=== PATIENT | female | born 1975 | race Caucasian/White ===

== ENCOUNTER → 2019-05-15 | Outpatient (CLI) | payer OTHER, SELFPAY ==
[2019-03-05 15:14] VITALS: BMI 48.4
--- NOTE | 2019-05-15 09:51 | ECHOCS_ITS ---
Reason For Study: palpitations, PFO, MAGGIE Procedure This was a 2D Doppler, Color Flow transthoracic echocardiogram. The study was technically difficult. D/T body habitus and arrhythmia. Exam performed in department. Left Ventricle Normal LV size. The estimated ejection fraction is 70 %. Normal diastology for age. No regional wall motion abnormalities noted. Right Ventricle Normal RV size. Normal systolic function. Atria The left atrium is mildly enlarged. Normal right atrium. No doppler evidence for ASD. No PFO visualised. Mitral Valve There is no mitral valve stenosis. No mitral valve insufficiency. Tricuspid Valve There is no tricuspid stenosis. Trivial tricuspid valve insufficiency. Unable to estimate RV systolic pressure due to insufficient tricuspid regurgitant envelope. Aortic Valve not well visualized. There is no aortic stenosis. No aortic valve insufficiency. Pulmonic Valve There is no pulmonic valvular stenosis. No pulmonic valve insufficiency. Great Vessels Normal aortic root. Pericardium/Pleural No pericardial effusion. MMode/2D Measurements & Calculations LVIDd: 4.3 cm IVSd: 1.1 cm Ao root diam: 3.1 cm LVIDs: 3.0 cm LVPWd: 1.2 cm RVDd: 3.4 cm FS: 29.5 % LAV(MOD-bp): 63.4 ml LA A4 area: 21.0 cm2 LA dimension(2D): 4.5 cm LAV(MOD-bp) Indexed: 27.3 ml/m2 LAV(MOD-sp2): 58.3 ml LAV(MOD-sp4): 66.5 ml RA A4 area: 13.3 cm2 Time Measurements MV dec time: 0.18 sec Doppler Measurements & Calculations MV E max josh: 54.1 cm/sec Lat Peak E' Josh: 10.3 cm/sec Med Peak E' Josh: 10.8 cm/sec MV A max josh: 62.3 cm/sec E/E' lat: 5.3 E/E' med: 5.0 MV E/A: 0.87 Ao V2 max: 105.8 cm/sec LV V1 max: 93.3 cm/sec PA V2 max: 99.1 cm/sec Ao max P.5 mmHg LV V1 max P.5 mmHg Interpretation Summary The study was technically difficult. Contrast injection was performed. The estimated ejection fraction is 70 %. Normal diastology for age. No PFO visualised The study was technically difficult. Contrast injection was performed. Ordering Physician: Ayla Carreon Referring Physician: Mt Johnson Performed By: Torie Leon, KAMICS, RVT
== END | disposition home or self-care (01) ==
PROVIDERS: Family Provider Family Medicine; PCP Family Medicine; Referring Provider Specialist; Visit Provider Specialist
DX: R00.2 Palpitations (principal); G47.33 Obstructive sleep apnea (adult) (pediatric); I48.0 Paroxysmal atrial fibrillation; I10 Essential (primary) hypertension; Q21.1 Atrial septal defect
CPT/HCPCS: 93306; Q9957; A4216; C8929

== ENCOUNTER → 2019-05-20 | Outpatient (CLI) | payer OTHER, SELFPAY ==
[2019-03-05 15:14] VITALS: BMI 48.4
[2019-05-20 16:52] LABS: ALB/GLOB Ratio 0.9 RATIO (0.9-2.4); AST(SGOT) 22 U/L (15-37); Alanine Aminotransfer ALT/SGPT 41 U/L (13-56); Albumin, Serum 3.6 g/dL (3.2-5.0); Alkaline Phosphatase 76 U/L (45-117); Anion Gap 4 (5-15); BUN 17 mg/dL (7-18); BUN/Creat Ratio 17.7 RATIO (10-20); Calcium,Total 8.9 mg/dL (8.5-10.1); Chloride 106 mmol/L (98-107); Creatinine, Serum 0.96 mg/dL (0.55-1.02); EST Glomerular Filtration Rate 66 mL/min (>60); Est Glom Filt Rate - Afr Amer 80 mL/min (>60); Free T3 3.2 pg/mL (2.18-3.98); Glucose 90 mg/dL (74-106); Magnesium 2.1 mg/dL (1.6-2.6); Potassium 3.8 mmol/L (3.5-5.1); Protein, Total 7.6 g/dL (6.4-8.2); Sodium Level 137 mmol/L (136-145); T4 Total, Thyroxin 15.3 ug/dL (4.8-13.9); Thyroid Stim Hormone (TSH) 0.18 uIU/mL (0.358-3.74)
== END | disposition home or self-care (01) ==
LOC: LAB 15:14
PROVIDERS: PCP Family Medicine; Referring Provider Specialist; Visit Provider Specialist
DX: I10 Essential (primary) hypertension (principal); I47.2 Ventricular tachycardia; I48.0 Paroxysmal atrial fibrillation; R00.2 Palpitations; Z85.850 Personal history of malignant neoplasm of thyroid
CPT/HCPCS: 36415; 80053; 83735; 84436; 84443; 84481

== ENCOUNTER → 2021-12-30 | Outpatient (CLI) | payer OTHER, SELFPAY | END | disposition home or self-care (01) | LOC: SL 20:10 | PROVIDERS: PCP Family Medicine; Referring Provider Internal Medicine Critical Care Medicine; Visit Provider Internal Medicine Critical Care Medicine | DX: G47.33 Obstructive sleep apnea (adult) (pediatric) (principal) | CPT/HCPCS: 95811 ==

== ENCOUNTER → 2022-04-06 | Outpatient (CLI) | payer OTHER, SELFPAY ==
--- NOTE | 2022-04-06 13:45 | PFTCOMP ---
COMPLETE PULMONARY FUNCTION TEST INTERPRETATION Brief HPI: Patient is a 47-year-old female, currently under the care of myself, who presents to [facility] for complete pulmonary function tests secondary to diagnosis of dyspnea. Respiratory therapist reports good effort and reproducible results. Interpretation: Forced expiration spirometry shows no large airways obstructive ventilatory defect with an FEV1 of 85% predicted. There is no significant bronchodilator response by strict ATS criteria. Spirograms are of good quality and plateau normally. The respiratory flow volume loop shows a normal pattern. Lung volumes by body plethysmography show a normal total lung capacity at 5.11 L, 95% predicted. All other lung volumes are within normal limits. Diffusion capacity by carbon monoxide is normal at 78% predicted. The airway resistance is normal. No previous pulmonary function tests were available for review. Impression: These pulmonary function tests are grossly within normal limits. DLCO is at the lower limit of normal, so early pulmonary vascular disorder cannot be excluded.
== END | disposition home or self-care (01) ==
LOC: PSN 06:00
PROVIDERS: PCP Family Medicine; Visit Provider Internal Medicine Critical Care Medicine
DX: R06.00 Dyspnea, unspecified (principal)
CPT/HCPCS: 94060; 94726; 94729

== ENCOUNTER → 2022-04-11 | Outpatient (CLI) | payer OTHER, SELFPAY ==
[2022-04-11 06:18] VITALS: PULSE 101; PULSE 102; PULSE 103; PULSE 104; PULSE 105; PULSE 106; PULSE 107; PULSE 99; O2SAT 93; O2SAT 95; O2SAT 96; O2SAT 97; O2SAT 98
--- NOTE | 2022-04-12 10:31 | PCM.PSN.6M ---
PSN 6 Minute Walk Test 6 Minute Walk Test 6 Minute Walk Test: 6 Minute Walk Test PSN:6-Minute Walk Test Start: 04/11/22 06:18 Freq: Status: Active Protocol: RESP.6MINW Document 04/11/22 06:18 ARIC (Rec: 04/11/22 06:20 ARIC [id number]) 6 Minute Walk Test Date Performed 04/11/22 Time Performed 06:00 Height 5 ft 6 in Weight: 309 lb Weight in Pounds 309.[address]: Leonid Boone Assistive device used: None Pre-test Oxygen Delivery Method Room Air Pulse Ox (%) 96 Pulse Rate (60-100 beats/min) 107 H Dyspnea Barney Scale (0-10) 0 Exertion Barney Scale (6-20) 6 1st minute Oxygen Delivery Method Room Air Pulse Ox (%) 95 Pulse Rate (60-100 beats/min) 105 H 2nd minute Oxygen Delivery Method Room Air Pulse Ox (%) 95 Pulse Rate (60-100 beats/min) 106 H 3rd minute Oxygen Delivery Method Room Air Pulse Ox (%) 95 Pulse Rate (60-100 beats/min) 101 H 4th minute Oxygen Delivery Method Room Air Pulse Ox (%) 93 Pulse Rate (60-100 beats/min) 103 H 5th minute Oxygen Delivery Method Room Air Pulse Ox (%) 95 Pulse Rate (60-100 beats/min) 104 H 6th minute Oxygen Delivery Method Room Air Pulse Ox (%) 97 Pulse Rate (60-100 beats/min) 102 H Dyspnea Barney Scale (0-10) 3 Exertion Barney Scale (6-20) 13 Post-test Oxygen Delivery Method Room Air Pulse Ox (%) 98 Pulse Rate (60-100 beats/min) 99 Full Laps Walked 18 Partial Lap, Number of Tiles Walked 12 Total Distance Walked (ft) 1074 Interpretation Interpretation: The patient ambulated in 1074 feet over the course of 6 minutes beginning on room air without assistive devices. Pretesting oxygen saturation was noted to be 96% on room air. With ambulation, the june oxygen saturation was 93%. There was no significant exertional oxygen desaturation. Recommendations Recommendations: There is no indication for the use of supplemental oxygen at this time.
== END | disposition home or self-care (01) ==
PROVIDERS: PCP Family Medicine; Referring Provider Internal Medicine Critical Care Medicine; Visit Provider Internal Medicine Critical Care Medicine
DX: R06.00 Dyspnea, unspecified (principal)
CPT/HCPCS: 94618

== ENCOUNTER 2022-12-12 08:50 | Emergency (ER) | payer BC, SELFPAY ==
[2022-12-12 08:52] VITALS: BP 134/80; PULSE 80; RESP 14; TEMP 36.3; O2SAT 96; BMI 40.4
--- NOTE | 2022-12-12 09:01 | CT_ITS ---
HISTORY: abdominal pain. Gastric sleeve surgery 2 weeks ago, nausea and vomiting x4 days. TECHNIQUE: Helically acquired images were obtained of the abdomen and pelvis after the intravenous administration of 100mL Isovue-300. A radiation dose optimization technique was used for this scan. 468 images. COMPARISON: None. FINDINGS: LOWER CHEST: Lung bases unremarkable. BOWEL: Gastric suture with trace perigastric fluid along the greater curvature. Bowel including appendix nondilated. No focal pericolonic inflammatory change observed. PERITONEUM: No significant ascites. LIVER: No enhancing mass. GALLBLADDER/BILIARY TREE: Numerous calcified gallstones filling the gallbladder. SPLEEN: 1.2 cm hypoenhancing lesion. PANCREAS/KIDNEYS/ADRENAL GLANDS: Unremarkable. VESSELS: No abdominal aortic aneurysm. PELVIC ORGANS: Tubal ligation clips noted. ABDOMINAL WALL: Mild anterior subcutaneous postoperative edema without fluid collection. BONES: Degenerative endplate changes at L5-S1. CT/Abdomen/Pelvis W IV Cont ONLY IMPRESSION: Cholelithiasis. Gastric postoperative change with trace fluid along the gastric wall, likely small postoperative seroma. No evidence for bowel obstruction. Small splenic lesion, likely hemangioma. Electronically Signed: Daphney Lynn MD at 10:20 EDT ,
--- NOTE | 2022-12-12 09:01 | EX.ED.GENINJ ---
HPI History of Present Illness Chief Complaint: Nausea/Vomiting Narrative Narrative: Patient had gastric sleeve surgery 13 days ago. She was doing well up until about 3 days ago, she started having some epigastric pain nausea and vomiting. She feels lightheaded. She has no lower abdominal pain pain does not radiate into her back she has no urinary symptoms. [facility] Medical History (Updated 12/12/22 @ 10:[address] Shakir Lee MD) Arthritis Atrial fibrillation with RVR Bipolar 1 disorder, depressed, mild Bipolar disorder Essential hypertension History of thyroid cancer Hyperlipidemia Hypothyroidism Morbid obesity with BMI of 40.0-44.9, adult MAGGIE (obstructive sleep apnea) Paroxysmal atrial fibrillation Patent foramen ovale Home Medications vilazodone 40 mg tablet 40 mg PO DAILY 06/18/15 [History Last Taken 06/29/15 07:00] albuterol sulfate 90 mcg/actuation aerosol inhaler 2 puff inhalation Q4H PRN 02/25/19 [History Last Taken Unknown] lisinopril 20 mg tablet 20 mg PO DAILY 02/25/19 [History Last Taken Unknown] rivaroxaban 20 mg tablet (Xarelto) 20 mg PO DAILY 03/05/19 [History Last Taken Unknown] simvastatin 40 mg tablet 40 mg PO QHS 05/20/19 [History Last Taken Unknown] metoprolol tartrate 50 mg tablet 75 mg (1.5 x 50 mg) PO BID #270 tabs 07/01/19 [Rx Last Taken Unknown] levothyroxine 100 mcg tablet 100 mcg PO DAILY #30 tabs 12/11/19 [Rx Last Taken Unknown] flecainide 100 mg tablet 100 mg PO Q12H 12/21/21 [History Last Taken Unknown] lamotrigine 200 mg tablet 200 mg PO DAILY 12/21/21 [History Last Taken Unknown] cholecalciferol (vitamin D3) 25 mcg (1,000 unit) capsule 25 mcg PO DAILY 05/11/22 [History Last Taken Unknown] cefdinir 300 mg capsule 300 mg PO BID #10 caps 12/12/22 [Rx Last Taken Unknown] Allergy/AdvReac Type Severity Reaction Status Date / Time atorvastatin [From Lipitor] Allergy Intermediate sharp, Verified 12/12/22 08:52 achy pain varenicline [From Chantix] Allergy Intermediate Unknown Verified 12/12/22 08:52 Family History Mother Thyroid disorder Depression Father CAD (coronary artery disease) Depression Hypertension Grandmother Cancer thyroid Grandmother Cancer Surgical History History of section History of partial knee replacement History of thyroidectomy History of tubal ligation Social History (Updated 12/21/21 @ 14:00 by Liliana Contreras) Smoking Status: Former smoker quit date: 02/14/19 alcohol intake: never substance use type: does not use caffeine: Yes Type: carbonated beverages and coffee Number of servings: 1 ROS ROS ED ROS Narrative Past medical history: Reviewed, hypertension, hypercholesterolemia, obesity, history of paroxysmal A-fib. Medications: Reviewed Social history: Noncontributory Review of systems: All systems negative except as indicated General: No fever Eyes: No visual changes ENT: No upper airway congestion, normal voice Neck: No neck pain Cardiovascular: No chest pain Respiratory: No shortness of breath or cough Gastrointestinal: As in HPI Genitourinary: No dysuria Musculoskeletal: Denies myalgias no difficulty with ambulation Skin: No rash Neurological: No memory loss, confusion or any focal weakness EXAM Physical Exam Narrative Exam Narrative: Physical exam General: She is relatively comfortable as I enter the room Head: Normocephalic, Atraumatic Eyes: Conjunctiva not pale ENT: Somewhat dry mucous membranes Neck: Supple, Nontender, No lymphadenopathy Cardiovascular: Regular rate, Regular rhythm Respiratory: No distress, CTA bilaterally Abdomen: Soft, minimal epigastric tenderness. No guarding or rebound. Incisions are clean dry and intact. Back: Nontender, Normal Inspection. Negative for: CVA tenderness Extremities: Nontender, No edema Skin: Normal color, No rash Neurological: Alert, Normal Strength, Normal Sensation Const Vital Signs: 12/12/22 08:52 Temperature 97.4 F L Temperature Source Temporal Pulse Rate 80 Respiratory Rate 14 Blood Pressure 134/80 H Blood Pressure Mean 98 Pulse Ox 96 Oxygen Delivery Method Room Air MDM MDM MDM Narrative Medical decision making narrative: EKG: Normal sinus rhythm with a rate of 65. Normal PA and QTc intervals. No ischemic changes Interpreted by emergency doctor Telemetry: Sinus rhythm with a rate in the 60s without ectopy MDM: Patient had significant dehydration as manifested by 150 ketones in the urine. She also has a slight UTI. This was treated. Patient was given IV fluids and significantly improved. I was worried about a postop complication although the CT does not show any obvious postop complication and she only has very minimal pain. There is no leukocytosis, fever or any infection on CT. Since she improved I believe she can be discharged I do not see a reason to admit or transfer her for surgical evaluation at this time. She still has antiemetics at home. Therefore I do not believe I need to write her prescription. Lab Data Labs: Laboratory Results - last 24 hr 12/12/22 12/12/22 09:08 09:10 WBC 7.3 RBC 4.95 Hgb 14.5 Hct 43.3 MCV 87.5 MCH 29.3 MCHC 33.5 RDW Std Deviation 40.5 RDW Coeff of Cezar 12.8 Plt Count 268 MPV 10.3 Immature Gran % (Auto) 0.100 Neut % (Auto) 65.1 Lymph % (Auto) 25.6 Bureau % (Auto) 7.4 Eos % (Auto) 1.1 Baso % (Auto) 0.7 Absolute Neuts (auto) 4.8 Absolute Lymphs (auto) 1.88 Nucleated RBC % 0 Sodium 137 Potassium 3.4 L Chloride 100 Carbon Dioxide 28.0 Anion Gap 9 BUN 17 Creatinine 0.96 Estim Creat Clear Calc 66.36 Est GFR (MDRD) Af Amer 79 Est GFR (MDRD) Non-Af 66 BUN/Creatinine Ratio 17.7 Glucose 105 Calcium 9.7 Total Bilirubin 0.60 AST 44 H ALT 61 H Alkaline Phosphatase 89 Total Protein 8.5 H Albumin 4.1 Globulin 4.4 H Albumin/Globulin Ratio 0.9 Lipase 77 H Urine Color Yellow Urine Clarity Cloudy Urine pH 5.0 Ur Specific [place] 1.025 Urine Protein 30 H Urine Glucose (UA) Normal Urine Ketones 150 A* Urine Occult Blood 10 H Urine Nitrite Negative Urine Bilirubin 3 H Urine Urobilinogen 8 H Ur Leukocyte Esterase 500 H Urine RBC 0-5 SEEN Urine WBC 25-50 SEEN Ur Squamous Epith Cells 0-5 SEEN Other Crystals Urine Bacteria 2+ Urine Mucus 2+ Radiography Diagnostic Testing: Clinical Impression(s) from Imaging Studies Abdomen/Pelvis CT 12/12/22 09:01 IMPRESSION: Cholelithiasis. Gastric postoperative change with trace fluid along the gastric wall, likely small postoperative seroma. No evidence for bowel obstruction. Small splenic lesion, likely hemangioma. Electronically Signed: Daphney Lynn MD at 10:20 EDT , Discharge Plan Triage Chief Complaint: Nausea/Vomiting ED Provider: Shakir Lee Dx/Rx/DC Orders Clinical Impression: UTI (urinary tract infection), Acute dehydration, Ketonuria, Nausea & vomiting Instructions: Dehydration Prescriptions: New cefdinir 300 mg capsule 300 mg PO BID Qty: 10 0RF No Action Xarelto 20 mg tablet 20 mg PO DAILY lisinopril 20 mg tablet 20 mg PO DAILY albuterol sulfate 90 mcg/actuation HFA aerosol inhaler 2 puff INHALATION Q4H PRN lamotrigine 200 mg tablet 200 mg PO DAILY flecainide 100 mg tablet 100 mg PO Q12H cholecalciferol (vitamin D3) 25 mcg (1,000 unit) capsule 25 mcg PO DAILY vilazodone 40 MG tablet 40 mg PO DAILY Patient Comments: Depression simvastatin 40 mg tablet 40 mg PO QHS metoprolol tartrate 50 mg tablet 75 mg PO BID Qty: 270 4RF levothyroxine 100 mcg tablet 100 mcg PO DAILY Qty: 30 11RF Primary Care Provider: Aguila Johnson Referrals: Aguila Johnson MD [Primary Care Provider] - Activity Restrictions/Additional Instructions: Follow-up with Dr. Gm amaya surgeon in the next few days. Disposition Disposition: Home, Self Care
[2022-12-12] MEDS: Ondansetron 4 MG/2 ML Vial IV (09:14)
[2022-12-12] MEDS: 0.9% Normal Saline 1,000 ML 1000 ML IV (09:14)
[2022-12-12 09:25] LABS: Absolute Lymphocyte Count 1.88 X10^3/uL (0.83-4.51); Absolute Neutrophil Count 4.8 X10^3/uL (2.0-7.7); Basophil# 0.05 X10^3/uL; Basophil% 0.7 % (0-1); Eosinophil# 0.08 X10^3/uL; Eosinophils% 1.1 % (0-5); Hematocrit 43.3 % (37-47); Hemoglobin 14.5 g/dL (12.0-15.0); Lymphocyte # 1.88 X10^3/ul (0.83-4.51); Lymphocyte % 25.6 % (19-41); Mean Corp Hgb Conc 33.5 g/dL (32-36); Mean Corpuscular Hgb 29.3 pg (27.0-32.0); Mean Corpuscular Volume 87.5 fL (81-99); Mean Platelet Vol. 10.3 fl (6.2-12.0); Monocyte# 0.54 X10^3/uL; Monocyte% 7.4 % (0-10); NRBC Flagged by Analyzer 0 % (0-5); Neutrophil # 4.77 X10^3/uL (2.7-7.7); Neutrophil % 65.1 % (47-70); Platelet Count 268 K/mm3 (150-450); RBC Distribution Width CV 12.8 % (11.6-14.6); RBC Distribution Width SD 40.5 fl (35.1-43.9); Red Blood Count 4.95 M/mm3 (4.2-5.4); White Blood Count 7.3 K/mm3 (4.4-11.0)
[2022-12-12 09:26] LABS: Color, Urine Yellow (Yellow); Glucose, Dipstick Normal (Normal); Leukocyte Esterase-Dipstick 500 /ul (Negative); Nitrite-Dipstick Negative (Negative); Occult Blood-Urine 10 /ul (Negative); Protein-Dipstick 30 mg/dl (Negative); Specific Gravity, Urine 1.025 (1.002-1.030); Urine Clarity Cloudy (Clear); Urine Urobilinogen 8 mg/dl (Normal)
[2022-12-12 09:27] LABS: Urine Bilirubin Dipstick 3 mg/dL (Negative)
[2022-12-12 09:28] LABS: Ketone-Dipstick 150 mg/dl (Negative)
[2022-12-12 09:32] LABS: Bacteria 2+ /hpf (None Seen); Mucous, Urine 2+ /hpf (<or=2+); Red Blood Cells-Urine 0-5 SEEN /hpf (0-5); Squamous Epithelial Cells - UA 0-5 SEEN /hpf (5-10); White Blood Cells 25-50 SEEN /hpf (0-5)
[2022-12-12 09:39] LABS: ALB/GLOB Ratio 0.9 RATIO (0.9-2.4); AST(SGOT) 44 U/L (15-37); Alanine Aminotransfer ALT/SGPT 61 U/L (13-56); Albumin, Serum 4.1 g/dL (3.2-5.0); Alkaline Phosphatase 89 U/L (45-117); Anion Gap 9 (5-15); BUN 17 mg/dL (7-18); BUN/Creat Ratio 17.7 RATIO (10-20); Calcium,Total 9.7 mg/dL (8.5-10.1); Chloride 100 mmol/L (98-107); Creatinine, Serum 0.96 mg/dL (0.55-1.02); EST Glomerular Filtration Rate 66 mL/min (>60); Est Glom Filt Rate - Afr Amer 79 mL/min (>60); Estimated Creatinine Clearance 66.36 ml/min; Globulin 4.4 g/dL (2.2-4.2); Glucose 105 mg/dL (74-106); Lipase 77 U/L (13-75); Potassium 3.4 mmol/L (3.5-5.1); Protein, Total 8.5 g/dL (6.4-8.2); Sodium Level 137 mmol/L (136-145)
[2022-12-12] MEDS: Ceftriaxone 1 GM/50 ML BAG IV (10:21)
[2022-12-12] MEDS: 0.9% Normal Saline 1,000 ML 999 ML IV (10:22)
[2022-12-12 10:48] VITALS: BP 143/24; PULSE 64; RESP 14; TEMP 36.6; O2SAT 99
== END 2022-12-12 10:50 | disposition home or self-care (01) ==
PROVIDERS: Emergency Provider Emergency Medicine; PCP Family Medicine; Visit Provider Emergency Medicine
DX: N39.0 Urinary tract infection, site not specified (principal); I48.0 Paroxysmal atrial fibrillation; E66.01 Morbid (severe) obesity due to excess calories; Z68.41 Body mass index [BMI] 40.0-44.9, adult; E86.0 Dehydration; R11.2 Nausea with vomiting, unspecified; E78.00 Pure hypercholesterolemia, unspecified; I10 Essential (primary) hypertension; Z87.891 Personal history of nicotine dependence; R82.4 Acetonuria; Z98.84 Bariatric surgery status
CPT/HCPCS: 74177; 80053; 81001; 83690; 85025; 93005; 96361; 96365; 96375; 99283; J7030; Q9967; A4216; J2405

== ENCOUNTER 2023-01-11 11:12 | Emergency (ER) | payer BC, SELFPAY ==
[2023-01-11 11:13] VITALS: BP 117/77; PULSE 67; RESP 18; TEMP 35.9; O2SAT 98; BMI 38.7
--- NOTE | 2023-01-11 12:02 | EDS_ITS ---
HPI History of Present Illness Chief Complaint: Nausea/Vomiting/Diarrhea Informant: patient Narrative Narrative: 47-year-old female with history of hypertension, proximal atrial fibrillation, hyperlipidemia, MAGGIE, PFO and recent gastric sleeve surgery presenting for feeling terrible. Patient states that she has not been feeling well for 1 week. She states she had a lot of pressure behind her left eye that is causing her headache. She notes that she knows when she blinks becomes throbbing. Denies any vision changes. Over the past 2 days she is feeling much worse and started to have nausea, shakiness, dizziness which she describes as a room spinning sensation and states she is barely eating. She notes that she has had a lot of diarrhea with this nausea but no vomiting. Denies any black or blood in her stool. She denies any fever. She states Tyle nol does help slightly with her headaches but they keep coming back. Yesterday she took some [employer] cold and flu medicine because she thought maybe she was coming down with something. She has been sneezing and blowing her nose a lot but denies any sore throat or ear pain. She states that she had decreased urine output and her urines been really dark. She also notes that she had gastric sleeve surgery [address] Worrell at [facility]. She states she was unable to follow-up for her 4-week follow-up because she did not have transportation there. She is worried there could be something wrong because of this. No other complaints at this time. Does not report any sick contacts. [facility] Medical History Arthritis Atrial fibrillation with RVR Bipolar 1 disorder, depressed, mild Bipolar disorder Essential hypertension History of thyroid cancer Hyperlipidemia Hypothyroidism Morbid obesity with BMI of 40.0-44.9, adult MAGGIE (obstructive sleep apnea) Paroxysmal atrial fibrillation Patent foramen ovale Home Medications vilazodone 40 mg tablet 40 mg PO DAILY 06/18/15 [History Last Taken 06/29/15 07:00] albuterol sulfate 90 mcg/actuation aerosol inhaler 2 puff inhalation Q4H PRN 02/25/19 [History Last Taken Unknown] lisinopril 20 mg tablet 20 mg PO DAILY 02/25/19 [History Last Taken Unknown] rivaroxaban 20 mg tablet (Xarelto) 20 mg PO DAILY 03/05/19 [History Last Taken Unknown] simvastatin 40 mg tablet 40 mg PO QHS 05/20/19 [History Last Taken Unknown] metoprolol tartrate 50 mg tablet 75 mg (1.5 x 50 mg) PO BID #270 tabs 07/01/19 [Rx Last Taken Unknown] levothyroxine 100 mcg tablet 100 mcg PO DAILY #30 tabs 12/11/19 [Rx Last Taken Unknown] flecainide 100 mg tablet 100 mg PO Q12H 12/21/21 [History Last Taken Unknown] lamotrigine 200 mg tablet 200 mg PO DAILY 12/21/21 [History Last Taken Unknown] cholecalciferol (vitamin D3) 25 mcg (1,000 unit) capsule 25 mcg PO DAILY 05/11/22 [History Last Taken Unknown] cefdinir 300 mg capsule 300 mg PO BID #10 caps 12/12/22 [Rx Last Taken Unknown] meclizine 25 mg tablet 25 mg PO 4X/DAY PRN PRN Dizziness #20 tabs 01/11/23 [Rx Last Taken Unknown] ondansetron HCl 4 mg tablet 4 mg PO Q8H PRN nausea and vomiting 5 days #20 tabs 01/11/23 [Rx Last Taken Unknown] Allergy/AdvReac Type Severity Reaction Status Date / Time atorvastatin [From Lipitor] Allergy Intermediate sharp, Verified 01/11/23 11:13 achy pain varenicline [From Chantix] Allergy Intermediate Unknown Verified 01/11/23 11:13 Family History Mother Thyroid disorder Depression Father CAD (coronary artery disease) Depression Hypertension Grandmother Cancer thyroid Grandmother Cancer Surgical History History of section History of partial knee replacement History of thyroidectomy History of tubal ligation Social History Smoking Status: Former smoker quit date: 02/14/19 alcohol intake: never substance use type: does not use caffeine: Yes Type: carbonated beverages and coffee Number of servings: 1 ROS ROS ED Constitutional Constitutional ED: Denies chills or fever(s) Eyes Eyes: Denies blurry vision, change in vision or diplopia ENT ENT ED: Denies ear pain, rhinorrhea or sore throat Cardiovascular Cardiovascular: Denies chest pain Respiratory/Chest Respiratory/Chest: Denies cough or dyspnea Gastrointestinal Gastrointestinal: Reports diarrhea and nausea; Denies abdominal pain, melena or vomiting Genitourinary Genitourinary ED: Reports other Details: Urination ; Denies dysuria Musculoskeletal Musculoskeletal: Denies arthralgias or myalgias Integumentary Denies rash Neurologic Neurologic: Reports headache(s) and other Details: Vertigo ; Denies paresthesias or weakness Psychiatric Psychiatric: Denies anxiety Hematologic/Lymphatic Hematologic/Lymphatic: Reports anemia and easy bleeding EXAM Physical Exam Const Vital Signs: 01/11/23 11:13 01/11/23 13:44 01/11/23 13:48 Temperature 96.7 F L Temperature Source Temporal Pulse Rate 67 Pulse Rate [Lying] 110 H Pulse Rate [Sitting (for 1 minute prior to obtaining)] 120 H Pulse Rate [Standing (for 1 minute prior to obtaining)] 105 H Respiratory Rate 18 16 Blood Pressure 117/77 Blood Pressure [Lying] 113/64 Blood Pressure [Sitting (for 1 minute prior to obtaining)] 108/86 H Blood Pressure [Standing (for 1 minute prior to obtaining)] 107/51 L Blood Pressure Mean 90 Blood Pressure Mean [Lying] 80 Blood Pressure Mean [Sitting (for 1 minute prior to obtaining)] 93 Blood Pressure Mean [Standing (for 1 minute prior to obtaining)] 69 Pulse Ox 98 Oxygen Delivery Method Room Air Positive well nourished and well developed General Appearance ED: well developed and NAD HEENT Reports TM's clear and moist mucous membranes Tympanic Membrane ED: Yes TM's clear Eyes PERRL and EOMs intact bilaterally Eyes Narrative: No nystagmus on exam Neck supple Chest Wall inspection of chest normal and palpation of chest normal Resp normal respiratory effort and clear to auscultation bilaterally Cardio regular rate, regular rhythm and no murmurs GI normal to inspection, nondistended, normoactive bowel sounds and non-tender Back/Spine no CVA tenderness Extremity normal to inspection General Extremety ED: Negative for edema General Extremity: Negative for edema Neuro oriented x3 Neuro Narrative: No focal neurologic deficits. Normal [id number] and [id number]. No truncal ataxia appreciated. No drift or deficit appreciated. Sensorium / Orientation: alert Motor Exam: Negative for general weakness Psych mental status grossly normal Skin no rashes or lesions noted and no wounds MDM MDM MDM Narrative Medical decision making narrative: Evaluated for generalized weakness, nausea, diarrhea and what sounds like vertigo. She does not have findings concerning for central vertigo or neurologic process required CT of the brain. Differential includes dehydration, electrolyte abnormality, MARISSA, viral syndrome such as COVID-19 infection and less likely small bowel obstruction or complication associated with her gastric sleeve. Will give IV fluids, Zofran, meclizine and obtain basic labs. COVID test is pending. Patient's vital signs are normal upon arrival. Patient is feeling better after the first liter of IV fluids and Zofran as well as meclizine. States her dizziness is improved. Orthostatics are positive for heart rate but no change in her blood pressure. She still complaining of a headache. She is given Reglan and another liter of IV fluids. Her lab work is largely unremarkable including CBC, CMP and urinalysis. Urinalysis is most consistent with dehydration. There is some contamination and I will send for culture as she does have 1+ bacteria with 10-25 white blood cells however her nitrites are negative. We will defer treatment for UTI at this time pending culture results. In addition patient does not have a leukocytosis. After discussion with the patient and continued headache and the fact that she is on anticoagulation with Xarelto, decision made to obtain a CT of the brain. CT of the brain does not show any acute process and shows normal visualized sinuses. She has a normal neurologic exam and I do not think she requires admission for MRI. Is given a dose of Tylenol and Medrol prior to discharge for headache treatment. Will not give NSAIDs because she is on Xarelto and I do not think opioids are indicated for subacute headache. Comfortable going home and at this time I do not think requires admission for intractable headache. Will be discharged home with a prescription for meclizine for her dizziness, Zofran to help with her oral intake and prevent further dehydration as well as referral for neurology for her headache. Patient counseled the importance of following up with her surgeon considering that she recently had gastric sleeve surgery and seems to be having some issues with her oral intake associate with that. At this time I do not think she requires admission however. She is agreeable this plan of care. Discharged home in stable and improved condition. Lab Data Labs: Laboratory Results - last 24 hr 01/11/23 01/11/23 11:32 12:13 WBC 5.5 RBC 4.24 Hgb 13.1 Hct 37.3 MCV 88.0 MCH 30.9 MCHC 35.1 RDW Std Deviation 42.2 RDW Coeff of Cezar 13.1 Plt Count 157 MPV 11.0 Immature Gran % (Auto) 0.200 Neut % (Auto) 51.3 Lymph % (Auto) 37.6 Winn % (Auto) 8.8 Eos % (Auto) 1.7 Baso % (Auto) 0.4 Absolute Neuts (auto) 2.8 Absolute Lymphs (auto) 2.05 Nucleated RBC % 0 Sodium 143 Potassium 3.6 Chloride 110 H Carbon Dioxide 28.0 Anion Gap 5 BUN 21 H Creatinine 0.58 Estim Creat Clear Calc 109.84 Est GFR (MDRD) Af Amer 141 Est GFR (MDRD) Non-Af 117 BUN/Creatinine Ratio 36.1 H Glucose 91 Calcium 9.2 Phosphorus 3.1 Magnesium 2.0 Total Bilirubin 0.30 AST 27 ALT 41 Alkaline Phosphatase 71 Total Protein 7.7 Albumin 3.9 Globulin 3.8 Albumin/Globulin Ratio 1.0 Urine Color Yellow Urine Clarity Sl. Cloudy Urine pH 5.0 Ur Specific [place] 1.025 Urine Protein 30 H Urine Glucose (UA) Normal Urine Ketones 150 A* Urine Occult Blood Negative Urine Nitrite Negative Urine Bilirubin 1 H Urine Urobilinogen 8 H Ur Leukocyte Esterase 100 H Urine RBC 0-5 SEEN Urine WBC 10-25 SEEN Ur Squamous Epith Cells 0-5 SEEN Urine Bacteria 1+ Urine Mucus 0 SEEN Radiography Diagnostic Testing: Clinical Impression(s) from Imaging Studies Brain CT 01/11/23 14:01 IMPRESSION: Normal unenhanced CT scan of the brain. Electronically Signed: Reuben Justin MD at 15:02 EDT , Discharge Plan Triage Chief Complaint: Nausea/Vomiting/Diarrhea Other Complaint: Dizziness Headache ED Provider: Ana Paula Plummer Dx/Rx/DC Orders Clinical Impression: Acute dehydration, Dizziness, Headache Instructions: ED Dehydration (Adult), ED Headache Unspecified, ED Vertigo, Unspecified Prescriptions: New ondansetron HCl 4 mg tablet 4 mg PO Q8H PRN (Reason: nausea and vomiting) 5 Days Qty: 20 0RF meclizine 25 mg tablet 25 mg PO 4X/DAY PRN PRN (Reason: Dizziness) Qty: 20 0RF No Action Xarelto 20 mg tablet 20 mg PO DAILY lisinopril 20 mg tablet 20 mg PO DAILY albuterol sulfate 90 mcg/actuation HFA aerosol inhaler 2 puff INHALATION Q4H PRN lamotrigine 200 mg tablet 200 mg PO DAILY flecainide 100 mg tablet 100 mg PO Q12H cholecalciferol (vitamin D3) 25 mcg (1,000 unit) capsule 25 mcg PO DAILY vilazodone 40 MG tablet 40 mg PO DAILY Patient Comments: Depression cefdinir 300 mg capsule 300 mg PO BID Qty: 10 0RF simvastatin 40 mg tablet 40 mg PO QHS metoprolol tartrate 50 mg tablet 75 mg PO BID Qty: 270 4RF levothyroxine 100 mcg tablet 100 mcg PO DAILY Qty: 30 11RF Primary Care Provider: Aguila Johnson Referrals: Aguila Johnson MD [Primary Care Provider] - Elijah Evangelista MD [Non-Staff -Ordering Privileges] - As soon as possible Activity Restrictions/Additional Instructions: Your urine showed signs of dehydration. We will send off for culture to make sure there is not subtle UTI however I have a lower suspicion for this and I do not think you need antibiotics at this time. Contacted if your culture results come back positive and you do require antibiotics. Continue take Tylenol and try to drink lots of fluids. Please try to follow-up with your surgeon for gastric sleeve. Return to the ER if you have a progression or worsening of your symptoms. Disposition Disposition: Home, Self Care
[2023-01-11] MEDS: Ondansetron 4 MG/2 ML Vial IV (12:12)
[2023-01-11] MEDS: Meclizine HCl 25 MG Tablet PO (12:12)
[2023-01-11] MEDS: 0.9% Normal Saline (1000mL) 1,000 ML 1000 ML IV (12:12)
[2023-01-11 12:14] LABS: Absolute Lymphocyte Count 2.05 X10^3/uL (0.83-4.51); Absolute Neutrophil Count 2.8 X10^3/uL (2.0-7.7); Basophil# 0.02 X10^3/uL; Basophil% 0.4 % (0-1); Eosinophil# 0.09 X10^3/uL; Eosinophils% 1.7 % (0-5); Hematocrit 37.3 % (37-47); Hemoglobin 13.1 g/dL (12.0-15.0); Lymphocyte # 2.05 X10^3/ul (0.83-4.51); Lymphocyte % 37.6 % (19-41); Mean Corp Hgb Conc 35.1 g/dL (32-36); Mean Corpuscular Hgb 30.9 pg (27.0-32.0); Monocyte# 0.48 X10^3/uL; Monocyte% 8.8 % (0-10); NRBC Flagged by Analyzer 0 % (0-5); Neutrophil % 51.3 % (47-70); Platelet Count 157 K/mm3 (150-450); RBC Distribution Width CV 13.1 % (11.6-14.6); RBC Distribution Width SD 42.2 fl (35.1-43.9); Red Blood Count 4.24 M/mm3 (4.2-5.4); White Blood Count 5.5 K/mm3 (4.4-11.0)
[2023-01-11 12:19] LABS: Mucous, Urine 0 SEEN /hpf (<or=2+)
[2023-01-11 12:22] LABS: Color, Urine Yellow (Yellow); Glucose, Dipstick Normal (Normal); Leukocyte Esterase-Dipstick 100 /ul (Negative); Nitrite-Dipstick Negative (Negative); Occult Blood-Urine Negative /ul (Negative); Protein-Dipstick 30 mg/dl (Negative); Specific Gravity, Urine 1.025 (1.002-1.030); Urine Clarity Sl. Cloudy (Clear); Urine Urobilinogen 8 mg/dl (Normal)
[2023-01-11 12:27] LABS: Ketone-Dipstick 150 mg/dl (Negative); Urine Bilirubin Dipstick 1 mg/dL (Negative)
[2023-01-11 12:29] LABS: Bacteria 1+ /hpf (None Seen); Squamous Epithelial Cells - UA 0-5 SEEN /hpf (5-10); White Blood Cells 10-25 SEEN /hpf (0-5)
[2023-01-11 12:30] LABS: Red Blood Cells-Urine 0-5 SEEN /hpf (0-5)
[2023-01-11 12:31] LABS: AST(SGOT) 27 U/L (15-37); Alanine Aminotransfer ALT/SGPT 41 U/L (13-56); Albumin, Serum 3.9 g/dL (3.2-5.0); Alkaline Phosphatase 71 U/L (45-117); Anion Gap 5 (5-15); BUN 21 mg/dL (7-18); BUN/Creat Ratio 36.1 RATIO (10-20); Calcium,Total 9.2 mg/dL (8.5-10.1); Chloride 110 mmol/L (98-107); Creatinine, Serum 0.58 mg/dL (0.55-1.02); EST Glomerular Filtration Rate 117 mL/min (>60); Est Glom Filt Rate - Afr Amer 141 mL/min (>60); Estimated Creatinine Clearance 109.84 ml/min; Globulin 3.8 g/dL (2.2-4.2); Glucose 91 mg/dL (74-106); Phosphorus 3.1 mg/dL (2.5-4.9); Potassium 3.6 mmol/L (3.5-5.1); Protein, Total 7.7 g/dL (6.4-8.2); Sodium Level 143 mmol/L (136-145)
[2023-01-11 13:44] VITALS: BP 107/51; BP 108/86; BP 113/64; PULSE 105; PULSE 110; PULSE 120
[2023-01-11 13:48] VITALS: RESP 16
--- NOTE | 2023-01-11 14:01 | CT_ITS ---
STUDY: CT BRAIN WITHOUT CONTRAST REASON FOR EXAM: Female, 47 years old. 2 day history of headaches, dizziness and nausea. RADIATION DOSAGE (If Supplied By Facility): CTDIvol = ( 44.99 ) mGy, DLP = ( 829.85 ) mGycm TECHNIQUE: Transaxial CT imaging of the brain was performed without administration of intravenous contrast material. Individualized dose optimization techniques were used for this CT. COMPARISON: No relevant priors. FINDINGS: Normal soft tissue structures. Normal calvarium. Normal size ventricles and extra-axial spaces for the patient''s age. Normal white matter tracts of the cerebral hemispheres. Normal basal ganglia and thalami. Normal brainstem. Normal cerebellum. There is no intracranial hemorrhage. There are no findings of an acute ischemic infarction. Normal visualized paranasal sinuses. CT/Brain/Head without Contrast IMPRESSION: Normal unenhanced CT scan of the brain. Electronically Signed: Reuben Justin MD at 15:02 EDT ,
[2023-01-11] MEDS: 0.9% Normal Saline (1000mL) 1,000 ML 999 ML IV (14:21)
[2023-01-11] MEDS: Metoclopramide 10 MG/2 ML Vial 5 MG IV (14:27)
[2023-01-11] MEDS: MethylPREDNISolone 125 MG/2 ML Vial IV (15:55)
[2023-01-11] MEDS: Acetaminophen 325 MG Tablet 650 MG PO (15:55)
== END 2023-01-11 16:11 | disposition home or self-care (01) ==
PROVIDERS: Emergency Provider Emergency Medicine; PCP Family Medicine; Visit Provider Emergency Medicine
DX: E86.0 Dehydration (principal); I48.0 Paroxysmal atrial fibrillation; R42 Dizziness and giddiness; Z87.891 Personal history of nicotine dependence; R19.7 Diarrhea, unspecified; I10 Essential (primary) hypertension; R51.9 Headache, unspecified; E78.5 Hyperlipidemia, unspecified; D64.9 Anemia, unspecified; Z79.01 Long term (current) use of anticoagulants; R11.2 Nausea with vomiting, unspecified; Z98.84 Bariatric surgery status
CPT/HCPCS: 70450; 80053; 81001; 83735; 84100; 85025; 87086; 87088; 87811; 96361; 96374; 96375; 99285; J7030; A4216; J2405